=== PATIENT | female | born 1965 | race Asian ===

== ENCOUNTER → 2016-12-14 | Outpatient (CLI) | payer BC ==
[~2016-12-14] MED LIST: CLAR10 PO; TRIA15OI8 TP
[2016-12-14 11:10] LABS: CLARITY URINE CLEAR (CLEAR); COLOR URINE YELLOW (YELLOW); GLUCOSE URINE NEGATIVE (NEGATIVE); KETONES URINE NEGATIVE (NEGATIVE); LEUKOCYTE ESTERASE URINE TRACE (NEGATIVE); NITRITE URINE NEGATIVE (NEGATIVE); OCCULT BLOOD URINE 3+ (NEGATIVE); PROTEIN URINE TRACE (NEGATIVE); UROBILINOGEN URINE 0.2 E.U./dL (0.2-1.0)
[2016-12-14 11:40] LABS: CARBON DIOXIDE 25 mEq/L (21-32); CHLORIDE 107 mEq/L (98-107); HDL CHOLESTEROL 60 mg/dL (40-59); LDL CHOLESTEROL 138 mg/dL (5-100)
== END | disposition home or self-care (01) ==
LOC: LAB 10:30
PROVIDERS: ATTEND Internal Medicine
DX: E55.9 Vitamin D deficiency, unspecified (principal); E78.00 Pure hypercholesterolemia, unspecified; R30.0 Dysuria; R74.0 Nonspecific elevation of levels of transaminase and lactic acid dehydrogenase [LDH]
CPT/HCPCS: 36415; 80053; 80061; 81001; 82306; 87086

== ENCOUNTER → 2016-12-27 | Outpatient (CLI) | payer BC ==
[2016-12-27 10:50] LABS: GLUCOSE URINE NEGATIVE (NEGATIVE); KETONES URINE NEGATIVE (NEGATIVE); LEUKOCYTE ESTERASE URINE NEGATIVE (NEGATIVE); NITRITE URINE NEGATIVE (NEGATIVE); OCCULT BLOOD URINE 3+ (NEGATIVE); PROTEIN URINE NEGATIVE (NEGATIVE); SPECIFIC GRAVITY URINE 1.008 (1.005-1.030); UROBILINOGEN URINE 0.2 E.U./dL (0.2-1.0)
[2016-12-27 10:51] LABS: CLARITY URINE SL HAZY (CLEAR); COLOR URINE YELLOW (YELLOW)
== END | disposition home or self-care (01) ==
LOC: LAB 09:09
PROVIDERS: ATTEND Internal Medicine
DX: R31.29 Other microscopic hematuria (principal)
CPT/HCPCS: 81001; 87086

== ENCOUNTER → 2018-11-12 | Outpatient (CLI) | payer BC ==
[2018-11-12 07:54] LABS: BASOPHILS % 1.1 % (0.0-2.0); EOSINOPHILS % 3.2 % (0.0-5.0); HEMATOCRIT. 38.5 % (36.0-48.0); LYMPHOCYTES % 31.3 % (20.0-50.0); MEAN CORPUSCULAR HEMOGLOBIN 31.5 pg (28.0-32.0); MEAN CORPUSCULAR VOLUME 93.2 fL (81.0-99.0); MEAN PLATELET VOLUME 8.4 fl (7.4-10.4); MONOCYTES % 7.3 % (2.0-8.0); NEUTROPHILS % 57.1 % (40.0-76.0); PLATELET 238 x1000/uL (130-400); RED BLOOD CELL COUNT 4.14 mill/uL (4.2-5.4); RED CELL DISTRIBUTION WIDTH 11.9 % (11.6-14.6)
[2018-11-12 08:09] LABS: CLARITY URINE CLEAR (CLEAR); COLOR URINE YELLOW (YELLOW); KETONES URINE NEGATIVE (NEGATIVE); LEUKOCYTE ESTERASE URINE NEGATIVE (NEGATIVE); NITRITE URINE NEGATIVE (NEGATIVE); OCCULT BLOOD URINE 2+ (NEGATIVE); PH URINE 5.5 (4.5-8.0); PROTEIN URINE NEGATIVE (NEGATIVE); UROBILINOGEN URINE 0.2 E.U./dL (0.2-1.0)
[2018-11-12 10:55] LABS: CHLORIDE 108 mEq/L (98-107)
[2018-11-12 11:03] LABS: LDL CHOLESTEROL 116 mg/dL (5-100)
[2018-11-12 11:04] LABS: HDL CHOLESTEROL 48 mg/dL (40-59)
== END | disposition home or self-care (01) ==
LOC: LAB 07:28
PROVIDERS: ATTEND Internal Medicine
DX: Z00.00 Encounter for general adult medical examination without abnormal findings (principal)
CPT/HCPCS: 36415; 80061; 81003; 83036; 84443

== ENCOUNTER → 2019-10-22 | Outpatient (CLI) | payer BC | END | disposition home or self-care (01) | LOC: MRI 10:51 | PROVIDERS: ATTEND Internal Medicine | DX: M47.22 Other spondylosis with radiculopathy, cervical region (principal); M48.02 Spinal stenosis, cervical region; M25.78 Osteophyte, vertebrae | CPT/HCPCS: 72141 ==

== ENCOUNTER → 2020-01-13 | Outpatient (CLI) | payer BC ==
[2020-01-13 08:06] LABS: HEMATOCRIT. 39.4 % (36.0-48.0); HEMOGLOBIN. 13.4 g/dL (12.0-16.0); MEAN PLATELET VOLUME 9.1 fl (7.4-10.4); PLATELET 248 x1000/uL (130-400); RED BLOOD CELL COUNT 4.19 mill/uL (4.2-5.4); RED CELL DISTRIBUTION WIDTH 12.2 % (11.6-14.6)
[2020-01-13 08:14] LABS: CHLORIDE 109 mEq/L (98-107); CLARITY URINE CLOUDY (CLEAR); COLOR URINE DK YELLOW (YELLOW); KETONES URINE NEGATIVE (NEGATIVE); LEUKOCYTE ESTERASE URINE 2+ (NEGATIVE); NITRITE URINE NEGATIVE (NEGATIVE); OCCULT BLOOD URINE 2+ (NEGATIVE); PH URINE 5.5 (4.5-8.0); PROTEIN URINE NEGATIVE (NEGATIVE); SPECIFIC GRAVITY URINE 1.026 (1.005-1.030); UROBILINOGEN URINE 0.2 E.U./dL (0.2-1.0)
[2020-01-13 08:21] LABS: LDL CHOLESTEROL 142 mg/dL (5-100)
[2020-01-13 08:22] LABS: HDL CHOLESTEROL 64 mg/dL (40-59)
[2020-01-13 13:42] LABS: PLATELET ESTIMATE NORMAL
== END | disposition home or self-care (01) ==
LOC: LAB 07:05
PROVIDERS: ATTEND Internal Medicine
DX: Z00.00 Encounter for general adult medical examination without abnormal findings (principal)
CPT/HCPCS: 36415; 80053; 80061; 81003; 83036; 84443; 85025

== ENCOUNTER → 2020-09-14 | Outpatient (CLI) | payer BC ==
[2020-09-14 08:20] LABS: BASOPHILS % 1.1 % (0.0-2.0); EOSINOPHILS % 1.4 % (0.0-5.0); HEMATOCRIT. 38.6 % (36.0-48.0); HEMOGLOBIN. 13.3 g/dL (12.0-16.0); LYMPHOCYTES % 32.6 % (20.0-50.0); MEAN CORPUSCULAR HEMOGLOBIN 32.1 pg (28.0-32.0); MEAN CORPUSCULAR VOLUME 92.9 fL (81.0-99.0); MEAN PLATELET VOLUME 8.8 fl (7.4-10.4); MONOCYTES % 8.6 % (2.0-8.0); NEUTROPHILS % 56.3 % (40.0-76.0); PLATELET 270 x1000/uL (130-400); RED BLOOD CELL COUNT 4.15 mill/uL (4.2-5.4); RED CELL DISTRIBUTION WIDTH 12.5 % (11.6-14.6)
[2020-09-14 08:23] LABS: CHLORIDE 108 mEq/L (98-107)
[2020-09-14 08:28] LABS: AMYLASE 61 IU/L (25-115)
[2020-09-14 08:32] LABS: LDL CHOLESTEROL 108 mg/dL (5-100)
[2020-09-14 08:33] LABS: HDL CHOLESTEROL 59 mg/dL (40-59)
== END | disposition home or self-care (01) ==
LOC: LAB 07:48
PROVIDERS: ATTEND Internal Medicine
DX: E78.5 Hyperlipidemia, unspecified (principal); R10.30 Lower abdominal pain, unspecified
CPT/HCPCS: 36415; 80053; 80061; 82150; 85025

== ENCOUNTER → 2021-02-16 | Outpatient (CLI) | payer BC ==
[2021-02-16 08:36] LABS: CHLORIDE 106 mEq/L (98-107)
[2021-02-16 08:39] LABS: BASOPHILS % 0.9 % (0.0-2.0); EOSINOPHILS % 1.8 % (0.0-5.0); HEMOGLOBIN. 14.1 g/dL (12.0-16.0); LYMPHOCYTES % 23.8 % (20.0-50.0); MEAN CORPUSCULAR HEMOGLOBIN 31.7 pg (28.0-32.0); MEAN CORPUSCULAR VOLUME 92.6 fL (81.0-99.0); MEAN PLATELET VOLUME 8.7 fl (7.4-10.4); MONOCYTES % 5.6 % (2.0-8.0); NEUTROPHILS % 67.9 % (40.0-76.0); PLATELET 267 x1000/uL (130-400); RED BLOOD CELL COUNT 4.43 mill/uL (4.2-5.4); RED CELL DISTRIBUTION WIDTH 12.3 % (11.6-14.6)
[2021-02-16 08:40] LABS: CLARITY URINE CLEAR (CLEAR); COLOR URINE YELLOW (YELLOW); KETONES URINE NEGATIVE (NEGATIVE); LEUKOCYTE ESTERASE URINE TRACE (NEGATIVE); NITRITE URINE NEGATIVE (NEGATIVE); OCCULT BLOOD URINE 3+ (NEGATIVE); PROTEIN URINE NEGATIVE (NEGATIVE); UROBILINOGEN URINE 0.2 E.U./dL (0.2-1.0)
[2021-02-16 08:43] LABS: LDL CHOLESTEROL 140 mg/dL (5-100)
[2021-02-16 08:45] LABS: HDL CHOLESTEROL 64 mg/dL (40-59)
== END | disposition home or self-care (01) ==
LOC: LAB 07:53
PROVIDERS: ATTEND Internal Medicine
DX: Z00.00 Encounter for general adult medical examination without abnormal findings (principal); E55.9 Vitamin D deficiency, unspecified
CPT/HCPCS: 36415; 80053; 80061; 81003; 82306; 83036; 83735; 84443; 85025

== ENCOUNTER → 2021-02-23 | Outpatient (CLI) | payer BC ==
[2021-02-23 12:38] LABS: HEPATITIS B SURFACE ANTIGEN NEGATIVE
== END | disposition home or self-care (01) ==
LOC: LAB 10:05
PROVIDERS: ATTEND Internal Medicine
DX: R74.01 Elevation of levels of liver transaminase levels (principal)
CPT/HCPCS: 36415; 80076; 86705; 86709; 86803; 87340

== ENCOUNTER → 2021-03-18 | Outpatient (CLI) | payer BC | END | disposition home or self-care (01) | LOC: US 07:28 | PROVIDERS: ATTEND Internal Medicine | DX: K76.89 Other specified diseases of liver (principal); R74.01 Elevation of levels of liver transaminase levels | CPT/HCPCS: 76705 ==

== ENCOUNTER → 2021-04-21 | Outpatient (CLI) | payer BC ==
[2021-04-21 09:48] LABS: CHLORIDE 109 mEq/L (98-107)
== END | disposition home or self-care (01) ==
LOC: LAB 07:04
PROVIDERS: ATTEND Internal Medicine
DX: R94.5 Abnormal results of liver function studies (principal)
CPT/HCPCS: 36415; 80048; 80076

== ENCOUNTER → 2021-06-23 | Outpatient (CLI) | payer BC ==
[2021-06-23 10:19] LABS: CHLORIDE 109 mEq/L (98-107)
== END | disposition home or self-care (01) ==
LOC: LAB 08:35
PROVIDERS: ATTEND Internal Medicine
DX: R74.01 Elevation of levels of liver transaminase levels (principal)
CPT/HCPCS: 36415; 80048; 80076

== ENCOUNTER → 2021-07-12 | Outpatient (CLI) | payer BC ==
[2021-07-12 09:58] LABS: CHLORIDE 108 mEq/L (98-107)
== END | disposition home or self-care (01) ==
LOC: LAB 09:00
PROVIDERS: ATTEND Internal Medicine
DX: E87.6 Hypokalemia (principal)
CPT/HCPCS: 36415; 80053; 83735

== ENCOUNTER → 2022-03-10 | Outpatient (CLI) | payer BC ==
[2022-03-10 12:25] LABS: EOSINOPHILS % 1.3 % (0.0-5.0); HEMOGLOBIN. 13.8 g/dL (12.0-16.0); LYMPHOCYTES % 35.7 % (20.0-50.0); MEAN CORPUSCULAR HEMOGLOBIN 31.5 pg (28.0-32.0); MEAN CORPUSCULAR VOLUME 93.6 fL (81.0-99.0); MEAN PLATELET VOLUME 8.8 fl (7.4-10.4); MONOCYTES % 5.9 % (2.0-8.0); NEUTROPHILS % 56.1 % (40.0-76.0); PLATELET 260 x1000/uL (130-400); RED BLOOD CELL COUNT 4.38 mill/uL (4.2-5.4); RED CELL DISTRIBUTION WIDTH 12.2 % (11.6-14.6)
[2022-03-10 12:34] LABS: CHLORIDE 108 mEq/L (98-107)
[2022-03-10 12:38] LABS: CLARITY URINE CLEAR (CLEAR); COLOR URINE YELLOW (YELLOW); KETONES URINE NEGATIVE (NEGATIVE); LEUKOCYTE ESTERASE URINE TRACE (NEGATIVE); NITRITE URINE NEGATIVE (NEGATIVE); OCCULT BLOOD URINE 3+ (NEGATIVE); PH URINE 5.5 (4.5-8.0); PROTEIN URINE NEGATIVE (NEGATIVE); UROBILINOGEN URINE 0.2 E.U./dL (0.2-1.0)
[2022-03-10 12:49] LABS: HDL CHOLESTEROL 63 mg/dL (40-59); LDL CHOLESTEROL 162 mg/dL (5-100)
== END | disposition home or self-care (01) ==
LOC: LAB 11:33
PROVIDERS: ATTEND Internal Medicine
DX: Z00.00 Encounter for general adult medical examination without abnormal findings (principal); Z13.220 Encounter for screening for lipoid disorders; Z13.1 Encounter for screening for diabetes mellitus; Z13.29 Encounter for screening for other suspected endocrine disorder
CPT/HCPCS: 36415; 80053; 80061; 81003; 83036; 84443; 85025

== ENCOUNTER → 2022-10-20 | Outpatient (CLI) | payer BC ==
[2022-10-20 10:16] LABS: CHLORIDE 106 mEq/L (98-107); INDEX HEMOLYSI 1 (1-3); INDEX ICTERIC 1 (1-4); INDEX LIPEMIC 1 (1-3); POTASSIUM 3.9 mEq/L (3.5-5.1); SODIUM 138 mEq/L (136-145)
[2022-10-20 10:25] LABS: ALANINE AMINOTRANSFERASE 79 IU/L (13-61); ALBUMIN 3.2 g/dL (3.4-5.0); ASPARTATE AMINOTRANSFERASE 31 IU/L (15-37); BILIRUBIN TOTAL 0.7 mg/dL (0.1-1.0); CARBON DIOXIDE 24 mEq/L (21-32); CHOLESTEROL 196 mg/dL (<200); CREATININE 0.8 mg/dL (0.6-1.3); GLUCOSE 100 mg/dL (70-105); HDL CHOLESTEROL 51 mg/dL (40-59); LDL CHOLESTEROL 128 mg/dL (5-100); PROTEIN TOTAL 7.9 g/dL (6.0-8.3); TRIGLYCERIDE 111 mg/dL (0-150); UREA NITROGEN BLOOD 14 mg/dL (7-21)
== END | disposition home or self-care (01) ==
LOC: LAB 09:38
PROVIDERS: ATTEND Internal Medicine
DX: E78.5 Hyperlipidemia, unspecified (principal)
CPT/HCPCS: 36415; 80053; 80061

== ENCOUNTER → 2023-02-13 | Outpatient (CLI) | payer BC ==
[2023-02-13 11:42] LABS: ALANINE AMINOTRANSFERASE 21 IU/L (10-49); ALBUMIN 4.4 g/dL (3.2-4.8); ASPARTATE AMINOTRANSFERASE 16 IU/L (<34); BILIRUBIN TOTAL 0.7 mg/dL (0.1-1.0); CALCIUM 9.8 mg/dL (8.7-10.4); CARBON DIOXIDE 25 mEq/L (21-32); CHLORIDE 106 mEq/L (98-107); CREATININE 0.8 mg/dL (0.6-1.0); GLUCOSE 133 mg/dL (70-105); POTASSIUM 3.5 mEq/L (3.5-5.1); PROTEIN TOTAL 7.5 g/dL (6.0-8.3); SODIUM 140 mEq/L (136-145); UREA NITROGEN BLOOD 13 mg/dL (9-23)
[2023-02-13 11:43] LABS: CLARITY URINE CLEAR (CLEAR); COLOR URINE YELLOW (YELLOW); GLUCOSE URINE NEGATIVE (NEGATIVE); KETONES URINE NEGATIVE (NEGATIVE); LEUKOCYTE ESTERASE URINE NEGATIVE (NEGATIVE); NITRITE URINE NEGATIVE (NEGATIVE); OCCULT BLOOD URINE 3+ (NEGATIVE); PROTEIN URINE NEGATIVE (NEGATIVE); SPECIFIC GRAVITY URINE 1.023 (1.005-1.030); UROBILINOGEN URINE 0.2 E.U./dL (0.2-1.0)
[2023-02-13 12:17] LABS: SQUAMOUS EPITHELIAL CELL URINE 2+ /lpf (RARE/1+)
[2023-02-13 12:22] LABS: MUCUS URINE 1+ /lpf (< = 2+)
[2023-02-13 12:23] LABS: WBC URINE 0-2 /hpf (0-2)
[2023-02-13 12:24] LABS: BACTERIA URINE TRACE; RBC URINE 0-2 /hpf (0-2)
[2023-02-13 12:26] LABS: HYALINE CASTS URINE 0-5 /lpf
== END | disposition home or self-care (01) ==
LOC: LAB 10:53
PROVIDERS: ATTEND Internal Medicine
DX: E55.9 Vitamin D deficiency, unspecified (principal); R31.21 Asymptomatic microscopic hematuria; R74.01 Elevation of levels of liver transaminase levels
CPT/HCPCS: 36415; 80053; 81003; 82306

== ENCOUNTER → 2023-04-06 | Outpatient (CLI) | payer BC | END | disposition home or self-care (01) | LOC: MRI 07:35 | PROVIDERS: ATTEND Internal Medicine | DX: M50.122 Cervical disc disorder at C5-C6 level with radiculopathy (principal); M25.78 Osteophyte, vertebrae; G96.191 Perineural cyst | CPT/HCPCS: 72141; 72148 ==

== ENCOUNTER → 2023-12-26 | Outpatient (CLI) | payer BC ==
[2023-12-26 09:14] LABS: BASOPHILS % 1.2 % (0.0-2.0); EOSINOPHILS % 2.4 % (0.0-5.0); HEMATOCRIT. 40.7 % (36.0-48.0); HEMOGLOBIN. 13.7 g/dL (12.0-16.0); LYMPHOCYTES % 37.3 % (20.0-50.0); MEAN CORPUSCULAR HEMOGLOBIN 31.7 pg (28.0-32.0); MEAN CORPUSCULAR HGB CONC 33.8 g/dL (31.0-37.0); MEAN CORPUSCULAR VOLUME 93.9 fL (81.0-99.0); MEAN PLATELET VOLUME 9.3 fl (7.4-10.4); MONOCYTES % 7.5 % (2.0-8.0); NEUTROPHILS % 51.6 % (40.0-76.0); PLATELET 228 x1000/uL (130-400); RED BLOOD CELL COUNT 4.33 mill/uL (4.2-5.4); RED CELL DISTRIBUTION WIDTH 12.6 % (11.6-14.6); WHITE BLOOD COUNT 5.3 x1000/uL (4.5-11.0)
[2023-12-26 09:18] LABS: CLARITY URINE CLEAR (CLEAR); COLOR URINE YELLOW (YELLOW); GLUCOSE URINE NEGATIVE (NEGATIVE); KETONES URINE NEGATIVE (NEGATIVE); LEUKOCYTE ESTERASE URINE NEGATIVE (NEGATIVE); NITRITE URINE NEGATIVE (NEGATIVE); OCCULT BLOOD URINE 3+ (NEGATIVE); PH URINE 5.5 (4.5-8.0); PROTEIN URINE NEGATIVE (NEGATIVE); SPECIFIC GRAVITY URINE 1.019 (1.005-1.030); UROBILINOGEN URINE 0.2 E.U./dL (0.2-1.0)
[2023-12-26 09:20] LABS: CHLORIDE 109 mEq/L (98-107); POTASSIUM 3.9 mEq/L (3.5-5.1); SODIUM 139 mEq/L (136-145)
[2023-12-26 09:21] LABS: CALCIUM 9.4 mg/dL (8.7-10.4); CARBON DIOXIDE 25 mEq/L (21-32)
[2023-12-26 09:26] LABS: CREATININE 0.6 mg/dL (0.6-1.0); GLUCOSE 98 mg/dL (70-105); TRIGLYCERIDE 148 mg/dL (0-150); UREA NITROGEN BLOOD 12 mg/dL (9-23)
[2023-12-26 09:27] LABS: LDL CHOLESTEROL 152 mg/dL (5-100)
[2023-12-26 09:28] LABS: ALANINE AMINOTRANSFERASE 22 IU/L (10-49); ALBUMIN 4.4 g/dL (3.2-4.8); ASPARTATE AMINOTRANSFERASE 28 IU/L (<34); CHOLESTEROL 219 mg/dL (<200); HDL CHOLESTEROL 54 mg/dL (>65)
[2023-12-26 09:29] LABS: BILIRUBIN TOTAL 0.5 mg/dL (0.1-1.0); PROTEIN TOTAL 7.4 g/dL (6.0-8.3)
[2023-12-26 09:31] LABS: THYROID STIMULATING HORMONE 0.71 uIU/mL (0.55-4.78)
[2023-12-26 10:11] LABS: SQUAMOUS EPITHELIAL CELL URINE 1+ /lpf (RARE/1+)
[2023-12-26 10:12] LABS: WBC URINE 0-2 /hpf (0-2)
[2023-12-26 10:13] LABS: BACTERIA URINE TRACE; RBC URINE 25-50 /hpf (0-2)
== END | disposition home or self-care (01) ==
LOC: LAB 07:12
PROVIDERS: ATTEND Internal Medicine
DX: Z13.1 Encounter for screening for diabetes mellitus (principal); Z13.29 Encounter for screening for other suspected endocrine disorder; Z00.00 Encounter for general adult medical examination without abnormal findings; E55.9 Vitamin D deficiency, unspecified; E78.5 Hyperlipidemia, unspecified
CPT/HCPCS: 36415; 80053; 80061; 81003; 82306; 83036; 84443; 85025

== ENCOUNTER → 2024-01-18 | Outpatient (CLI) | payer BC | END | disposition home or self-care (01) | LOC: CARD 08:40 | PROVIDERS: ATTEND Internal Medicine | DX: I35.8 Other nonrheumatic aortic valve disorders (principal); R00.2 Palpitations | CPT/HCPCS: 93306 ==

== ENCOUNTER → 2024-01-25 | Outpatient (CLI) | payer BC ==
[~2024-01-25] VITALS: Ht 160 cm; Wt 64.4 kg
[~2024-01-25] MED LIST changes: +IOHEXOL-350 100 ML BOTTLE ONE
[2024-01-25] MEDS: NITROGLYCERIN SPRAY/4.9GM CAN TL ONE (10:10)
== END | disposition home or self-care (01) ==
LOC: CT 09:37
PROVIDERS: ATTEND Internal Medicine
DX: Z13.6 Encounter for screening for cardiovascular disorders (principal); R00.2 Palpitations
CPT/HCPCS: 75571; Q9967

== ENCOUNTER → 2024-08-21 | Outpatient (CLI) | payer BC ==
[~2024-08-21] MED LIST changes: -IOHEXOL-350 100 ML BOTTLE ONE
[2024-08-21 08:24] LABS: CHLORIDE 106 mEq/L (98-107); SODIUM 141 mEq/L (136-145)
[2024-08-21 08:25] LABS: CALCIUM 10.1 mg/dL (8.7-10.4); CARBON DIOXIDE 27 mEq/L (21-32)
[2024-08-21 08:30] LABS: CREATININE 0.8 mg/dL (0.6-1.0); GLUCOSE 117 mg/dL (70-105); UREA NITROGEN BLOOD 13 mg/dL (9-23)
[2024-08-21 08:31] LABS: LDL CHOLESTEROL 172 mg/dL (5-100)
[2024-08-21 08:32] LABS: ALANINE AMINOTRANSFERASE 26 IU/L (10-49); ALBUMIN 4.9 g/dL (3.2-4.8); ASPARTATE AMINOTRANSFERASE 26 IU/L (<34); BILIRUBIN TOTAL 0.6 mg/dL (0.1-1.0); CHOLESTEROL 213 mg/dL (<200); HDL CHOLESTEROL 57 mg/dL (>65)
[2024-08-21 08:33] LABS: PROTEIN TOTAL 7.7 g/dL (6.0-8.3)
[2024-08-21 08:39] LABS: TRIGLYCERIDE 190 mg/dL (0-150)
[2024-08-21 09:07] LABS: CLARITY URINE CLEAR (CLEAR); COLOR URINE YELLOW (YELLOW); GLUCOSE URINE NEGATIVE (NEGATIVE); KETONES URINE TRACE (NEGATIVE); LEUKOCYTE ESTERASE URINE TRACE (NEGATIVE); NITRITE URINE NEGATIVE (NEGATIVE); OCCULT BLOOD URINE 3+ (NEGATIVE); PROTEIN URINE TRACE (NEGATIVE); SPECIFIC GRAVITY URINE 1.023 (1.005-1.030); UROBILINOGEN URINE 0.2 E.U./dL (0.2-1.0)
[2024-08-21 09:39] LABS: BACTERIA URINE 1+; RBC URINE 15-25 /hpf (0-2); SQUAMOUS EPITHELIAL CELL URINE 1+ /lpf (RARE/1+); WBC URINE 0-2 /hpf (0-2); YEAST URINE NONE SEEN
== END | disposition home or self-care (01) ==
LOC: LAB 06:57
PROVIDERS: ATTEND Internal Medicine
DX: E78.5 Hyperlipidemia, unspecified (principal); E55.9 Vitamin D deficiency, unspecified; Z13.29 Encounter for screening for other suspected endocrine disorder
CPT/HCPCS: 36415; 80053; 80061; 81001; 81003; 82306

== ENCOUNTER → 2025-01-22 | Outpatient (CLI) | payer BC ==
[2025-01-22 09:15] LABS: BASOPHILS % 1.3 % (0.0-2.0); EOSINOPHILS % 1.9 % (0.0-5.0); HEMATOCRIT. 41.6 % (36.0-48.0); HEMOGLOBIN. 13.8 g/dL (12.0-16.0); LYMPHOCYTES % 36.1 % (20.0-50.0); MEAN PLATELET VOLUME 8.9 fl (7.4-10.4); MONOCYTES % 5.8 % (2.0-8.0); NEUTROPHILS % 54.9 % (40.0-76.0); PLATELET 229 x1000/uL (130-400); RED BLOOD CELL COUNT 4.46 mill/uL (4.2-5.4); RED CELL DISTRIBUTION WIDTH 12.2 % (11.6-14.6)
[2025-01-22 09:17] LABS: CLARITY URINE CLEAR (CLEAR); COLOR URINE YELLOW (YELLOW); GLUCOSE URINE NEGATIVE (NEGATIVE); KETONES URINE NEGATIVE (NEGATIVE); LEUKOCYTE ESTERASE URINE NEGATIVE (NEGATIVE); NITRITE URINE NEGATIVE (NEGATIVE); OCCULT BLOOD URINE 3+ (NEGATIVE); PH URINE 5.0 (4.5-8.0); PROTEIN URINE TRACE (NEGATIVE); SPECIFIC GRAVITY URINE 1.020 (1.005-1.030); UROBILINOGEN URINE 0.2 E.U./dL (0.2-1.0)
[2025-01-22 10:02] LABS: SQUAMOUS EPITHELIAL CELL URINE FEW /lpf (RARE/1+)
[2025-01-22 10:03] LABS: WBC URINE 0-2 /hpf (0-2)
[2025-01-22 10:04] LABS: BACTERIA URINE TRACE
[2025-01-22 12:19] LABS: CREATININE 0.8 mg/dL (0.6-1.0); TRIGLYCERIDE 130 mg/dL (0-150); UREA NITROGEN BLOOD 13 mg/dL (9-23)
[2025-01-22 12:20] LABS: LDL CHOLESTEROL 96 mg/dL (5-100)
[2025-01-22 12:21] LABS: ASPARTATE AMINOTRANSFERASE 29 IU/L (<34); BILIRUBIN TOTAL 0.8 mg/dL (0.1-1.0); PROTEIN TOTAL 7.4 g/dL (6.0-8.3)
[2025-01-24 13:12] LABS: *CREATININE RANDOM URINE 122.0 mg/dL (Not Estab.); MICROALBUMIN RANDOM URINE 45.6 ug/mL (Not Estab.); MICROALBUMIN/CREATININE RATIO 37.0 mg/g creat (0-29)
== END | disposition home or self-care (01) ==
LOC: LAB 08:39
PROVIDERS: ATTEND Internal Medicine
DX: E78.5 Hyperlipidemia, unspecified (principal); R31.21 Asymptomatic microscopic hematuria; Z13.1 Encounter for screening for diabetes mellitus; Z00.00 Encounter for general adult medical examination without abnormal findings
CPT/HCPCS: 36415; 80053; 80061; 81003; 82043; 82570; 83036; 85025